=== PATIENT | male | born 1980 | race Caucasian/White ===

== ENCOUNTER 2019-02-25 20:48 | Emergency (ER) | payer OTHER, MEDICARE ==
[2019-02-25 21:11] VITALS: BP 139/67
--- NOTE | 2019-02-25 21:31 | PHYS DOC ---
Past History Past Medical History: Depression, Other Past Surgical History: Cholecystectomy, Other Additional Smoking Information: Chewing Alcohol Use: Occasionally Drug Use: None Adult General Chief Complaint Chief Complaint: RIB PAIN [facility] HPI 39-year-old male presents with left-sided rib pain. The patient is wheelchair bound was leaning over his wheelchair which hasn't arm 3 days ago pressure on his rib. He a pop sound and pain. The pain does seem to be getting better. He was playing basketball today and when the patient twisted a certain way that pain came back equal to 3 days ago. The patient decided he should have it evaluated to make sure it is not broken. He does have pain with deep breathing. He does not feel short of breath. He denies any other injuries or complaints. Review of Systems Review of Systems Constitutional: Denies fever or chills [] Eyes: Denies change in visual acuity, redness, or eye pain [] HENT: Denies nasal congestion or sore throat [] Respiratory: Denies cough or shortness of breath [] Cardiovascular: No additional information not addressed in HPI [] GI: Denies abdominal pain, nausea, vomiting, bloody stools or diarrhea [] : Denies dysuria or hematuria [] Musculoskeletal: Left, anterior, inferior rib pain[] Integument: Denies rash or skin lesions [] Neurologic: Denies headache, focal weakness or sensory changes [] Endocrine: Denies polyuria or polydipsia [] All other systems were reviewed and found to be within normal limits, except as documented in this note. Allergies Allergies Allergies Coded Allergies Type Severity Reaction Last Updated Verified No Known Drug Allergies 02/25/19 No Physical Exam Physical Exam Constitutional: Well developed, well nourished, no acute distress, non-toxic appearance. [] HENT: Normocephalic, atraumatic, bilateral external ears normal, oropharynx moist, no oral exudates, nose normal. [] Eyes: PERRLA, EOMI, conjunctiva normal, no discharge. [] Neck: Normal range of motion, no tenderness, supple, no stridor. [] Cardiovascular:Heart rate regular rhythm, no murmur [] Lungs & Thorax: Bilateral breath sounds clear to auscultation. Pain with palpation of the left anterior lower ribs. No ecchymosis. [] Abdomen: Bowel sounds normal, soft, no tenderness, no masses, no pulsatile masses. [] Skin: Warm, dry, no erythema, no rash. [] Back: No tenderness, no CVA tenderness. [] Extremities: No tenderness, no cyanosis, no clubbing, ROM intact, no edema. [] Neurologic: Alert and oriented X 3, normal motor function, normal sensory func tion, no focal deficits noted. [] Psychologic: Affect normal, judgement normal, mood normal. [] Current Patient Data Vital Signs Vital Signs Date Time Temp Pulse Resp B/P (MAP) Pulse Ox O2 Delivery O2 Flow Rate FiO2 02/25/19 21:11 98.2 78 18 99 Room Air EKG EKG [] Radiology/Procedures Radiology/Procedures [] Impressions: Preliminary interpretation left ribs and AP chest: No acute fracture dislocation is seen. Course & Med Decision Making Course & Med Decision Making Pertinent Labs and Imaging studies reviewed. (See chart for details) The patient's rib x-rays are negative for fracture. This is likely a bruised rib or osteochondritis. I have advised NSAID therapy, rest, and ice as needed. Patient is stable for discharge at this time. [] Dragon Disclaimer Dragon Disclaimer This electronic medical record was generated, in whole or in part, using a voice recognition dictation system. Departure Departure: Impression: Primary Impression: Contusion of rib on left side Disposition: 01 HOME, SELF-CARE Condition: STABLE Referrals: JAVIER PRITCHARD MD (PCP) Patient Instructions: Rib Contusion Problem Qualifiers Primary Impression: Contusion of rib on left side Encounter type: initial encounter Qualified Codes: S20.212A - Contusion of left front wall of thorax, initial encounter KARAN MASSEY DO Feb 25, 2019 21:31
--- NOTE | 2019-02-25 22:19 | RAD ---
Exam: Radiograph left RIBS and PA chest INDICATION: Injury TECHNIQUE: Frontal view of the chest with oblique and frontal views of the left ribs. Comparisons: None FINDINGS: The cardiomediastinal silhouette and pulmonary vessels are within normal limits. The lung and pleural spaces are clear. No displaced rib fracture. IMPRESSION: 1. No acute cardiopulmonary process. 2. No displaced rib fracture. Electronically signed by: Gilberto Trinidad MD (02/25/2019 10:16 PM) [facility]
== END 2019-02-25 22:45 | disposition home or self-care (01) ==
LOC: ER 20:48
DX: S20.212A Contusion of left front wall of thorax, initial encounter (principal); F17.220 Nicotine dependence, chewing tobacco, uncomplicated; X50.1XXA Overexertion from prolonged static or awkward postures, initial encounter; Y93.67 Activity, basketball; Y92.89 Other specified places as the place of occurrence of the external cause; Y99.8 Other external cause status
CPT/HCPCS: 71101; 99284

== ENCOUNTER → 2020-01-01 | Outpatient (CLI) | payer OTHER, MEDICARE ==
--- NOTE | 2020-01-01 11:39 | RAD ---
VENOUS LOWER EXTREMITY LEFT History: Reason: LLE SWELLING, PARAPLEGIC / Spl. Instructions: / History: Comparison: None. Discussion: Multiple longitudinal and transverse high resolution real-time images of the venous system of left lower extremity were obtained with color and Doppler sampling. The common femoral, superficial femoral, popliteal and proximal calf veins are all patent and demonstrate normal flow and compressibility. Normal respiratory phasicity and augmentation is present. Degraded evaluation of the posterior tibial vein although appears patent. Impression: 1. No evidence of deep vein thrombosis. Electronically signed by: Alli Evans DO (01/01/2020 11:36 AM) [id number]
== END ==
LOC: US 10:58
PROVIDERS: ATTEND Family Medicine
DX: M79.89 Other specified soft tissue disorders (principal)
CPT/HCPCS: 93971

== ENCOUNTER → 2020-01-06 | Outpatient (CLI) | payer OTHER, MEDICARE ==
--- NOTE | 2020-01-06 17:03 | RAD ---
2 view study of the left tibia and fibula Clinical indications: Leg pain. FINDINGS: No acute fracture or dislocation or lytic process is evident. No significant arthritic change of the left knee or the mortise ankle joint is seen. IMPRESSION: No significant osseous abnormality. Electronically signed by: Umang Yuen MD (01/06/2020 5:00 PM) [id number]
== END ==
LOC: RAD 10:03
PROVIDERS: ATTEND Family Medicine
DX: M79.89 Other specified soft tissue disorders (principal)
CPT/HCPCS: 73590